=== PATIENT | female | born 1995 | race Caucasian/White ===

== ENCOUNTER → 2025-01-18 | Outpatient (CLI) | payer MEDICAID, SELFPAY ==
--- NOTE | 2025-01-18 11:11 | XR_ITS ---
Examination: PA lateral chest 2 views TECHNIQUE: Upright PA lateral chest 2 views Exam date and time: January 18, 2025 1158 hours INDICATIONS: Coughing one week. FINDINGS: Significant pneumonia posterior basal segment left lower lobe Right lung clear Normal heart size IMPRESSION: Significant left lower lobe pneumonia
== END | disposition home or self-care (01) ==
PROVIDERS: PCP Family Medicine; Referring Provider Physician Assistant; Visit Provider Physician Assistant
DX: J18.9 Pneumonia, unspecified organism (principal)
CPT/HCPCS: 71046

== ENCOUNTER 2025-06-03 09:47 | Emergency (ER) | payer MEDICAID, SELFPAY ==
[2025-06-03 10:28] VITALS: BP 107/77; PULSE 91; RESP 17; TEMP 36.7; O2SAT 98
--- NOTE | 2025-06-03 10:30 | EKG_ITS ---
[facility] Test Date: 2025-06-03 Pat Name: ROSAURA LEE Department: Room: - Gender: Female Electrical Assistant: : 1995 Requested By: Christopher Silva (TIFFANIE) Order Number: [id number] Reading MD: Christopher Silva (CONTINUOUS CRUSHER OPERATOR) Measurements Intervals Staples Rate: 92 P: 64 MI: 142 QRS: 80 QRSD: 86 T: 20 QT: 347 QTc: 430 Interpretive Statements SINUS RHYTHM POSSIBLE RIGHT VENTRICULAR CONDUCTION DELAY [RSR (QR) IN V1/V2] No previous ECG available for comparison /[id number]/S0/[id number].pdf
--- NOTE | 2025-06-03 10:30 | XR_ITS ---
Examination: PA lateral chest 2 views TECHNIQUE: Upright PA lateral chest 2 views Date and time: June 03, 2025 10:42 AM Comparison January 18, 2025 INDICATIONS: Chest pain shortness of breath dizziness today FINDINGS: Normal heart size Lungs are clear. The osseous structures are intact IMPRESSION: No active disease.
--- NOTE | 2025-06-03 10:30 | PD.EDRME ---
Rapid Medical Screening Exam RME Arrival date/time: 06/03/25 09:47 30-year-old female presents to the Emergency Department today for complaint of shortness of breath patient reports recently donating eggs Chief Complaint: Shortness of Breath/Dyspnea Time Seen by Provider: 06/03/25 09:59 Vital signs: Vital Signs Temperature 98.1 F 06/03/25 10:28 Pulse Rate 91 06/03/25 10:28 Respiratory Rate 17 06/03/25 10:28 Blood Pressure 107/77 06/03/25 10:28 Pulse Oximetry (%) 98 06/03/25 10:28 Oxygen Delivery Method Room Air 06/03/25 10:28
[2025-06-03 11:33] LABS: Basophils # (Auto) 0.0 Thou/mm3 (0.0-0.2); Basophils % (Auto) 0 % (0-2.5); Eosinophils # (Auto) 0.1 Thou/mm3 (0.0-0.5); Eosinophils % (Auto) 1 % (0-10); Hematocrit 40.2 % (36.0-46.0); Hemoglobin 13.7 g/dL (12.0-16.0); Immature Granulocytes Auto 0.06 Thou/mm3 (0.00-0.00); Lymphocytes # (Auto) 2.4 Thou/mm3 (1.0-4.8); Lymphocytes % (Auto) 18 % (10-50); Mean Corpuscular HGB Conc 34.1 g/dl (31.0-37.0); Mean Corpuscular Hemoglobin 31.6 pg (25.0-35.0); Mean Corpuscular Volume 93 fL (80-100); Monocytes # (Auto) 0.8 Thou/mm3 (0.0-0.8); Monocytes % (Auto) 6 % (0-12); Neutrophils # (Auto) 9.5 Thou/mm3 (1.8-7.7); Neutrophils % (Auto) 74 % (37-80); Nucleated Red Blood Cell # 0.00 Thou/mm3 (0.00-0.00); Nucleated Red Blood Cell % 0 /100 WBC (0); Platelet Count 201 Thou/mm3 (140-440); RDW Standard Deviation 44.3 fL (36.4-46.3); Red Blood Count 4.33 Miln/mm3 (4.00-5.20); White Blood Count 12.7 Thou/mm3 (3.6-11.0)
[2025-06-03 11:53] LABS: D-Dimer 1840 ng/mL (<600)
[2025-06-03 11:55] LABS: Alanine Aminotransferase < 7 U/L (10-49); Albumin, Serum 4.4 gm/dL (3.5-5.0); Albumin/Globulin Ratio 1.7 (1.2-2.2); Alkaline Phosphatase 42 U/L (46-116); Anion Gap 10 (7-16); Aspartate Amino Transferase 16 U/L (0-34); BUN/Creatinine Ratio 15 Ratio (12-20); Bilirubin,Total 0.6 mg/dL (0.3-1.2); Blood Urea Nitrogen 12 mg/dL (9-23); Calcium 9.6 mg/dL (8.3-10.6); Calcium (Corrected) 9.6 mg/dL (8.5-10.1); Carbon Dioxide 23.5 mMol/L (20.0-31.0); Chloride 103 mMol/L (98-107); Creatinine (Component) 0.8 mg/dL (0.6-1.3); Globulin 2.6 gm/dL (2.3-3.5); Glucose 95 mg/dL (74-106); Osmolality,Calculated 271 (275-295); Potassium 4.2 mMol/L (3.4-5.1); Sodium 136 mMol/L (136-145); Total Protein 7.0 gm/dL (5.7-8.2); Troponin I < 0.002 ng/mL (0.0-0.045); eGFR > 60 See Note
[2025-06-03 12:07] LABS: HCG,Qualitative Serum Positive
[2025-06-03 13:33] VITALS: BMI 23.0
--- NOTE | 2025-06-03 13:37 | EDNOTE_ITS ---
ED SOB =RME/HPI General Chief Complaint: Shortness of Breath/Dyspnea Stated Complaint: SOB, lightheaded, dizzy Time Seen by Provider: 06/03/25 09:59 Arrival date/time: 06/03/25 09:47 RME / HPI RME / HPI Narrative: 30-year-old female patient with no past medical history, came in for evaluation regarding sudden onset of shortness of breath lightheadedness and dizziness since early this morning. Patient is concerned because she just donated an eggs in [place] a few days ago. Patient denies any cough denies any chest pain denies any fever denies any other complaint no medication was taken prior to ER visit. Related Data Home Medications ?Medication ?Instructions ?Recorded ?Confirmed sertraline 50 mg tablet 50 mg PO QDAY 05/03/2405/14 Previous Rx's ?Medication ?Instructions ?Recorded vit no.95-ferrous 1 tab PO QDAY #30 tabs 10/22 12/14 fumarate 28 mg-folic acid 800 mcg tablet () ibuprofen 600 mg tablet 600 mg PO Q6H PRN pain #30 t abs 05/14/24 Allergies Allergy/AdvReac Type Severity Reaction Status Date / Time No Known Allergies Allergy Verified 06/03/25 09:53 Review of Systems Review of Systems Narrative Review of Systems: Review of system reviewed and within normal limits except mentioned in HPI ED Exam Narrative Physical exam: VITAL SIGNS: Reviewed. GENERAL APPEARANCE: Alert and interactive, follows commands, no acute distress, HEAD AND FACE: Non-traumatic. ENT: PERRL, pink conjunctivitis, eyelid no trauma, Mucous membrane moist. NECK: Supple, nontender, no nuchal rigidity. CHEST: No tenderness, no crepitus, no paradoxical movement, no retractions. LUNGS: Clear, well ventilated, symmetric, no rales, no wheezing, no ronchi, no stridor, good breath sounds bilaterally. HEART: Regular rate, regular rhythm, no murmur, no gallops. ABDOMEN: Soft, positive bowel sounds, nondistended, no guarding, nontender, no rebound, no masses, RECTAL: Deferred. GENITAL: Deferred. NEUROLOGICAL: Gross motor function intact sensory function intact, Appropriate for age. MUSCULOSKELETAL: low back nontender, full range of motion. EXTREMITIES: Nontender, full range of motion. SKIN: Color pink, dry, no rash, no lacerations, no abrasions, no contusions. LYMPHATICS: Deferred. Course Quality Measures none Orders Category Date Time Status CT Screening NOW Care 06/03/25 11:57 Active EKG (ED ONLY) *Do not use* NOW Care 06/03/25 10:30 Completed Insert IV NOW Care 06/03/25 11:[address] angio chest Stat Exams 06/03/25 11:57 Stop Req EKG (ED Only) Stat Exams 06/03/25 10:30 Draft XR chest 2V Stat Exams 06/03/25 10:30 Completed CBC Stat Lab 06/03/25 10:57 Completed Comprehensive Metabolic Panel Stat Lab 06/03/25 10:57 Completed D-Dimer Stat Lab 06/03/25 10:57 Completed HCG,Qualitative Serum Stat Lab 06/03/25 10:57 Completed Troponin I Stat Lab 06/03/25 10:57 Completed Vital Signs Vital signs: Vital Signs Temperature 98.1 F 06/03/25 10:28 Pulse Rate 91 06/03/25 10:28 Respiratory Rate 17 06/03/25 10:28 Blood Pressure 107/77 06/03/25 10:28 Pulse Oximetry (%) 98 06/03/25 10:28 Oxygen Delivery Method Room Air 06/03/25 10:28 Shortness of Breath / Dyspnea MDM Narrative MDM Narrative:: 30-year-old female patient with no past medical history, came in for evaluation regarding sudden onset of shortness of breath lightheadedness and dizziness since early this morning. Patient is concerned because she just donated an eggs in [place] a few days ago. Patient denies any cough denies any chest pain denies any fever denies any other complaint no medication was taken prior to ER visit. Patient's CBC showed 12.7 leukocytosis, no sign of anemia D-dimer was elevated 1840 which could be secondary to the procedure that was done few days ago the rest of the labs unremarkable . I personally reviewed and interpreted the x-ray of this patient. There is no acute abnormalities found, no infiltrates no pneumothorax no hemothorax normal chest x-ray. Review of other structures was without significant abnormal findings also. I additionally reviewed the radiologist report and agree with the interpretation. EKG showed normal sinus rhythm, ventricular rate of 92 bpm, no ST segment elevation or depression noted. Patient tested positive for hCG which could be secondary to patient taking medication for stem cells prior to donating female eggs. I do not suspect pulmonary embolism at this time, patient is not tachypneic patient is not hypoxic satting 100%, heart rate of 76. Patient's Wells score is 0. Low risk. Patient is able to ambulate without any sign of recurrence of shortness of breath or chest discomfort. Patient stable for discharge home. Was advised to come back to the emergency room for recurrence of symptoms Patient data External records reviewed:: None Clinical information provided by:: patient Social determinants that could affect healthcare access:: none Patient has the following chronic illnesses:: None How is presenting disease/condition affected by chronic disease/condition?: no chronic disease Evaluation data The following diagnostics were reviewed and interpreted by me:: lab results, radiology exam(s) and EKG tracing(s) Lab and/or radiology exams considered but not ordered:: None Interpretation Summary: See results MDM Medications / Prescriptions Medications or Prescriptions considered but not ordered:: None Medication administrations:: None Consultations Consultation(s) initiated? (list below): No Diagnosis Shortness of Breath Differential Diagnosis: congestive heart failure, community acquired pneumonia and pulmonary embolism Most likely diagnosis given after review of the tests above:: Shortness of breath Admission Indicated Admission indicated?: not indicated Admission Request Was there a request for admission?: No Disposition Plan Disposition Plan: Discharge Discharge Attestation Discharge Attestation: The patient was given an opportunity to ask questions and understood the discharge instructions. Discharge instructions specifically effects, indications for sooner follow up or return to the emergency department, and the expected course of current diagnosis. Patient condition: Stable Discharge Plan Plan Patient Disposition: HOME (Self Care) Discharge Disposition comment: Stable Prescriptions/Referrals Prescriptions/Med Rec: No Action ibuprofen 600 mg tablet 600 mg PO Q6H PRN (Reason: pain) Qty: 30 0RF sertraline 50 mg tablet 50 mg PO QDAY Patient Comments: TAKE ONE TABLET BY MOUTH EVERY DAY PNV no.95-ferrous fumarate-FA [] 28 mg iron- 800 mcg tablet 1 tab PO QDAY Qty: 30 0RF Referrals: Wilyl Villalobos MD [Primary Care Provider] - In 1 week Problem List Clinical Impression: Shortness of breath Patient/Caregiver Discharge Instructions Discharge Activity: activity as tolerated Education Materials: ED Shortness of Breath (Dyspnea) Additional Instructions: Thank you for the opportunity for serving you today. You are stable for discharged . You are advised to: Follow-up with your PCP in 1 to 2 days Return to ED for worsening of symptoms Increase oral fluids Print Language: [place] Stand Alone Forms: Zoila Award Info., Patient Portal Info Letter PA/ENDLESS BELT FINISHER Supervising Physician MOLLY/HARJINDER Supervising Physician: MD Mario
[2025-06-03 13:40] VITALS: BP 116/92; PULSE 76; RESP 18; O2SAT 100
== END 2025-06-03 14:35 | disposition home or self-care (01) ==
PROVIDERS: Nurse Practitioner Primary Care; Emergency Provider Family Medicine; PCP Family Medicine
DX: R06.02 Shortness of breath (principal); R42 Dizziness and giddiness
CPT/HCPCS: 36415; 71046; 80053; 84484; 84703; 85025; 85379; 93005; 99283

== ENCOUNTER 2025-09-26 07:49 | Emergency (ER) | payer MEDICAID, SELFPAY ==
[2025-09-26 08:13] VITALS: BP 110/75; PULSE 82; RESP 16; TEMP 36.8; O2SAT 98; BMI 23.8
--- NOTE | 2025-09-26 08:20 | PD.EDEYE ---
ED Eye Problem RME/HPI General Chief complaint: Eye Problems Stated complaint: R) EYE REDNESS, SWELLING, DISCHARGE Time Seen by Provider: 09/26/25 07:57 Source: patient Arrival date/time: 09/26/25 07:49 30-year-old female with no known medical history presents to the emergency room with a chief complaint of swelling, discharge, erythema to her right eye x 2 days Mode of arrival: ambulatory Limitations: no limitations Related Data Home Medications ?Medication ?Instructions ?Recorded ?Confirmed sertraline 50 mg tablet 50 mg PO QDAY 05/03/24 05/14/24 Previous Rx's ?Medication ?Instructions ?Recorded vit no.95-ferrous 1 tab PO QDAY #30 tabs 11/11/23 fumarate 28 mg-folic acid 800 mcg tablet () ibuprofen 600 mg tablet 600 mg PO Q6H PRN pain #30 tabs 05/14/24 tobramycin 0.3 % eye drops 2 drp ophthalmic (eye) Q2H #5 mL 09/26/25 tobramycin 0.3 % eye drops 2 drp ophthalmic (eye) Q2H #5 mL 09/26/25 Allergies Allergy/AdvReac Type Severity Reaction Status Date / Time No Known Allergies Allergy Verified 09/26/25 07:52 Review of Systems Review of Systems Systems Reviewed: All systems reviewed, normal except as documented Constitutional Constitutional: Reports system reviewed and no additional complaints, except as documented, Denies fatigue, Denies fever(s), Denies headache(s) and Denies weakness Eyes Eyes: Reports system reviewed and no additional complaints, except as documented, Denies blind spots, Reports blurry vision, Denies change in vision, Denies decreased night vision, Denies diplopia, Reports eye discharge, Denies exophthalmos, Denies floaters, Reports irritation, Reports itchy eyes, Denies loss of peripheral vision, Denies loss of vision, Denies other visual disturbances, Reports eye pain, Denies photophobia, Denies requires corrective lenses, Denies seeing flashes, Denies spots in vision and Denies tunnel vision ENT Ears, Nose, Mouth, and Throat: Reports system reviewed and no additional complaints, except as documented, Denies otalgia, Denies headache(s), Denies nasal congestion, Denies throat swelling and Denies vertigo Cardiovascular Cardiovascular: Reports system reviewed and no additional complaints, except as documented, Denies chest pain, Denies dyspnea and Denies dyspnea on exertion Respiratory Respiratory: Reports system reviewed and no additional complaints, except as documented, Denies chest congestion, Denies cough, Denies dyspnea, Denies dyspnea on exertion and Denies wheezing Gastrointestinal Gastrointestinal: Reports system reviewed and no additional complaints, except as documented, Denies abdominal pain, Denies cramping, Denies nausea and Denies vomiting Genitourinary Genitourinary: Reports system reviewed and no additional complaints, except as documented Musculoskeletal Musculoskeletal: Reports system reviewed and no additional complaints, except as documented and Denies back pain Integumentary/Breasts Skin/Breast: Reports system reviewed and no additional complaints, except as documented and Denies wounds Neurologic Neurologic: Reports system reviewed and no additional complaints, except as documented, Denies confusion, Denies headache(s), Denies lack of coordination, Denies loss of vision, Denies vertigo and Denies weakness Psychiatric Psychiatric: Reports system reviewed and no additional complaints, except as documented, Denies anxiety, Denies confusion, Denies depression, Denies paranoia, Denies suicidal ideation and Denies tactile hallucinations Endocrine Endocrine: Reports system reviewed and no additional complaints, except as documented and Denies fatigue Hematologic/Lymphatic Hematologic/Lymphatic: Reports system reviewed and no additional complaints, except as documented and Denies lymphadenopathy Allergic/Immunologic Allergic/Immunologic: Reports system reviewed and no additional complaints, except as documented, Reports itchy eyes, Denies throat swelling, Denies urticaria and Denies wheezing Past Medical History Past Medical History NEUROLOGIC: Negative Neurological Disorders or Seizures CARDIAC: Negative Cardiac Disorders or Congestive Heart Failure RESPIRATORY: Negative Chronic Obstructive Pulmonary Disease (COPD) or Asthma GASTROINTESTINAL: Negative Gastrointestinal Disorders or Colorectal Cancer GENITOURINARY: Negative Genitourinary Disorders or Renal Disease REPRODUCTIVE: Positive Previous Pregnancies; Negative Breast Cancer MUSCULOSKELETAL: Negative Musculoskeletal Disorders ENDOCRINE: Negative Endocrine Disorders, Diabetes Mellitus Type 1 or Diabetes Mellitus Type 2 HEMATOLOGIC: Negative Blood Disorders, Anemia or Sickle Cell Disease PSYCHO/SOCIAL: Positive Depression OTHER HISTORY: Negative Autoimmune Disease, Falls, Blood Transfusion Reaction, Anesthesia Reactions, Breast Cancer, Cervical Cancer or Colorectal Cancer Family History FAMILY HISTORY: Positive Family Cardiac Disorders and Family Cancer; Negative Family Psychiatric Problems, Family Respiratory Disorders or Family Gastrointestinal Problems Surgical History SURGICAL: Positive Section; Negative Abdominal Surgery or Joint Replacement Social History SMOKING STATUS: Never smoker SECOND HAND EXPOSURE: No ED Exam General Limitations: Present no limitations General appearance: Present alert and in no apparent distress Head Head exam: Present atraumatic Eye Eye exam: Present normal appearance, PERRL, EOMI and conjunctival injection; Absent periorbital swelling or periorbital tenderness Expanded Eye Exam Sclera/Conjunctival: right: injection, exudate and tenderness ENT ENT exam: Present normal exam, normal oropharynx and mucous membranes moist Neck Neck exam: Present normal inspection, full ROM and trachea midline Chest Chest inspection: Present normal inspection and symmetric chest wall rise Respiratory Respiratory exam: Present normal lung sounds bilaterally Cardiovascular Cardiovascular exam: Present regular rate, normal rhythm and normal heart sounds Abdominal Exam Abdominal exam: Present soft and normal bowel sounds Extremities Exam Extremities exam: Present normal inspection and full ROM Back Exam Back exam: Present normal inspection and full ROM Neurological Exam Neurological exam: Present alert, oriented X3 and CN II-XII intact Psychiatric Psychiatric exam: Present normal affect and normal mood Skin Skin exam: Present warm, dry, intact and normal color Course Quality Measures none Vital Signs Vital signs: Vital Signs Temperature 98.2 F 09/26/25 08:13 Pulse Rate 82 09/26/25 08:13 Respiratory Rate 16 09/26/25 08:13 Blood Pressure 110/75 09/26/25 08:13 Pulse Oximetry (%) 98 09/26/25 08:13 Oxygen Delivery Method Room Air 09/26/25 08:13 Eye MDM Narrative MDM Narrative:: 30-year-old female with no known medical history presents to the emergency room with a chief complaint of swelling, discharge, erythema to her right eye x 2 days Patient is hemodynamically stable and in no apparent distress Physical examination shows a erythemic lower conjunctiva. There is some drainage and stringy discharge. The findings are consistent with bacterial conjunctivitis Patient was discharged and educated to follow-up with primary care provider in the next 24 to 48 hours and return to the emergency room for any evidence of worsening signs or symptoms Patient data External records reviewed:: [facility] previous records Clinical information provided by:: patient Social determinants that could affect healthcare access:: none Patient has the following chronic illnesses:: No chronic illness How is presenting disease/condition affected by chronic disease/condition?: no chronic disease Evaluation data The following diagnostics were reviewed and interpreted by me:: lab results and radiology exam(s) Lab and/or radiology exams considered but not ordered:: Labs and radiology exams considered and ordered Interpretation Summary: N/A Medications / Prescriptions Medications or Prescriptions considered but not ordered:: No medication given Medication administrations:: No medication given Consultations Consultation(s) initiated? (list below): No Diagnosis Eye Problem Differential Diagnosis: corneal abrasion, conjunctivitis and corneal ulcer Most likely diagnosis given after review of the tests above:: Bacterial conjunctivitis Admission Indicated Admission indicated?: not indicated Admission Request Was there a request for admission?: No Disposition Plan Disposition Plan: Discharge Discharge Attestation Discharge Attestation: The patient and all family members were given an opportunity to ask questions and understood the discharge instructions. Discharge instructions specifically effects, indications for sooner follow up or return to the emergency department, and the expected course of current diagnosis. Patient condition: Stable Discharge Plan Plan Patient Disposition: HOME (Self Care) Discharge Disposition comment: Stable Prescriptions/Referrals Prescriptions/Med Rec: New tobramycin 0.3 % drops 2 drp ophthalmic (eye) Q2H Qty: 5 0RF tobramycin 0.3 % drops 2 drp ophthalmic (eye) Q2H Qty: 5 0RF No Action ibuprofen 600 mg tablet 600 mg PO Q6H PRN (Reason: pain) Qty: 30 0RF sertraline 50 mg tablet 50 mg PO QDAY Patient Comments: TAKE ONE TABLET BY MOUTH EVERY DAY PNV no.95-ferrous fumarate-FA [] 28 mg iron- 800 mcg tablet 1 tab PO QDAY Qty: 30 0RF Problem List Clinical Impression: Bacterial conjunctivitis Patient/Caregiver Discharge Instructions Education Materials: What Is Conjunctivitis?, ED Conjunctivitis, Bacterial Additional Instructions: Please follow-up with your primary care provider in the next 24 to 48 hours Antibiotics are sent to your pharmacy please pick them up and take them as indicated For any evidence of worsening signs or symptoms return to the emergency room immediately Print Language: [place] Stand Alone Forms: Zoila Award Info., Work/School Release, Patient Portal Info Letter PA/AMMUNITION STOREKEEPER Supervising Physician PA/HARJINDER Supervising Physician: Dr. Roque
== END 2025-09-26 08:30 | disposition home or self-care (01) ==
LOC: SERX 08:28
PROVIDERS: Emergency Provider Emergency Medicine; PCP Family Medicine
DX: H10.89 Other conjunctivitis (principal)
CPT/HCPCS: 99281